=== PATIENT | female | born 2000 | race Caucasian/White ===

== ENCOUNTER 2019-01-29 09:20 | Inpatient (IN) ==
[2019-01-29 11:05] LABS: BASO# 0.02 X1000 (0.0-0.2); BASO% 0.2 % (0.0-0.8); EOS# 0.02 X1000 (0.0-0.7); EOS% 0.2 % (0.0-10.0); HEMOGLOBIN 13.2 g/dL (12.0-16.0); IMM GRAN# 0.03 X1000 (0.0-0.04); IMM GRAN% 0.2 % (0.0-0.5); LYMPH# 1.04 X1000 (1.2-3.4); LYMPH% 7.8 % (20.5-51.1); MCH 31.1 PG (27-31); MCHC 32.2 g/dL (33-37); MCV 96.5 FL (81-99); MONO# 1.15 X1000 (0.11-0.59); MONO% 8.7 % (1.7-9.3); MPV 9.8 FL (7.4-10.4); NEUT# 11.02 X1000 (1.4-6.5); NEUT% 82.9 % (42.2-75.2); PLT 316 X1000 (130-400); RBC 4.25 XMIL (4.2-5.4); RDW 14.8 % (11.5-14.5); WBC 13.28 X1000 (4.8-10.8)
[2019-01-29 11:23] LABS: AGAP 10; ALBUMIN 3.4 g/dL (3.5-5.0); ALKALINE PHOSPHATASE 66 U/L (32-104); BUN 8 mg/dL (8-22); CALCIUM 8.4 mg/dL (8.8-10.2); CHLORIDE 102 mmol/L (98-107); COSMO 271; CREATININE 0.9 mg/dL (0.5-0.9); ESTIMATED GFR > 60; GLUCOSE 80 mg/dL (70-104); GOT 12 U/L (10-30); GPT 17 U/L (10-36); POTASSIUM 3.4 mmol/L (3.5-5.1); SODIUM 137 mmol/L (136-145); TCO2 25 mmol/L (25-35); TOTAL PROTEIN 6.1 g/dL (6.3-8.3)
--- NOTE | 2019-01-29 12:27 | Diag Imaging Result Doc PS360 ---
EXAM: CHEST-2 VIEWS - 01/29/2019 HISTORY: cough/SOB TECHNIQUE: Chest two views COMPARISON: 05/31/2014 FINDINGS: Heart size appears upper normal and increased from prior. Inspiration is mildly shallow. There is apparent infiltrate in the right upper lobe. There are small to medium bilateral pleural effusions. There is no pneumothorax identified. IMPRESSION: Upper normal heart size which is increased from prior. Apparent infiltrate at right upper lobe. Metastatic lesion at the right lobe cannot be entirely excluded. Small to medium bilateral pleural effusions. Electronically signed by Francis Pham 01/29/2019 12:24 PM
--- NOTE | 2019-01-29 12:56 | Diag Imaging Result Doc PS360 ---
EXAM: CT NECK W/CONTRAST - 01/29/2019 HISTORY: neck pain TECHNIQUE: CT neck with intravenous contrast COMPARISON: 03/05/2014 CT cervical spine without contrast FINDINGS: The left internal jugular vein is diffusely thrombosed and enlarged. The thrombosis begins superiorly just below the jugular foramen at the base of the skull. The left innominate vein at the visualized superior most thorax does not opacify with contrast, left upper extremity sided contrast administration, indicating that the innominate vein also is thrombosed. There are multiple bilateral cervical and supraclavicular lymph nodes. These are small, but some are enlarged. The most conspicuously enlarged lymph nodes at the low cervical and supraclavicular regions on the right. IMPRESSION: Diffuse thrombosis with enlargement of left internal jugular vein in the neck. There is also evidence of thrombosis of the left innominate vein at the visualized superior most thorax. Bilateral cervical and supraclavicular adenopathy. This report was discussed with Dr. Hobbs on 01/29/2019 at 12:53 PM and was readback. This exam was performed using automated exposure control, adjustment of mA or kV according to patient size, and/or use of iterative reconstruction technique. Electronically signed by Francis Pham 01/29/2019 12:53 PM
--- NOTE | 2019-01-29 13:14 | PROVIDER DOCUMENTATION ---
HPI-General Adult - General Chief Complaint: Neck Pain Stated Complaint: NECK PAIN REVISIT/RECHECK Time Seen by Provider: 01/29/19 09:53 Source: patient, family Allergies/Adverse Reactions: Patient Allergies Allergy/AdvReac Type Severity Reaction Status Date / Time No Known Allergies Allergy Verified 01/27/19 18:53 Home Medications: Home Medication List Medication Instructions Recorded Confirmed Last Taken Type Nitrofurantoin Monohyd/M-Cryst 100 mg PO BID #14 cap 12/09/18 Unknown Rx [Macrobid 100 mg Capsule] Pnv No.95/Ferrous Fum/Folic AC 1 ea PO DAILY 12/09/18 12/09/18 Unknown History [ Caplet] Mupirocin Ointment [Bactroban 1 applicatn TOP BID #22 gm 01/27/19 Unknown Rx Ointment] - History of Present Illness -Gen Adult Nature of Presenting Problems: [id number] presents to the ER with c/o left neck pain, malaise, fever and dry cough. She states that sometimes she coughs up blood. She states she has been sick for a couple of weeks now and her neck has been hurting. 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 Exam reveals a painful mass to the left side of the of her neck. Diminished breath sounds. Location of Pain/Injury: reports: neck (left side) Pain Radiation: reports: no radiation Quality of Pain: reports: sharp Severity: reports: moderate Onset/Duration: reports: other (2 weeks ago) Review of Systems - Adult - REVIEW OF SYSTEMS - ADULT Constitutional: reports: no symptoms reported, fever Eyes: reports: no symptoms reported Ears, Nose, Mouth & Throat: reports: no symptoms reported Cardiovascular: reports: no symptoms reported, chest pain (with cough) Respiratory: reports: no symptoms reported, hemoptysis, shortness of breath Gastrointestinal: reports: no symptoms reported, difficulty swallowing. denies: abdominal pain, diarrhea, vomiting Genitourinary: reports: no symptoms reported Musculoskeletal: reports: no symptoms reported Integumentary: reports: no symptoms reported Neurological: reports: no symptoms reported. denies: dizziness/vertigo, headache/migraines Psychiatric: reports: no symptoms reported. denies: anxiety Endocrine: reports: no symptoms reported Hematologic/Lymphatic: reports: no symptoms reported. denies: low blood count Allergic/Immunologic: reports: no symptoms reported All Other Systems: Reviewed and Negative Past History - Adult - PAST MEDICAL HISTORY-ADULT Review of Records: reports: Old Records Reviewed, Nursing Assessment Review, Medications Reviewed, Social history reviewed & non-contributory. 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) - PRIOR SURGERIES/PROCEDURES Surgical/Procedure History: reports: , other (tumor removal) - PRIOR HOSPITALIZATIONS Prior Hospitalizations: reports: none - IMMUNIZATION STATUS Childhood Immunizations: See Nurse Assessment Flu Vaccine: See Nurse Assessment - FAMILY HISTORY Family History: reviewed, not pertinent - SOCIAL HISTORY Smoking: denies Substance Use: none/never Living Situation: family Physical Exam-General - PHYSICAL EXAM-ADULT Initial Vital Signs Reviewed: Yes - CONSTITUTIONAL General Appearance: alert, mild distress - EYES Eyes: PERRL/EOMI, pink conjunctivae - HEAD, EARS, NOSE, MOUTH & THROAT HENMT: normocephalic/atraumatic, moist mucous membranes, normal ENT inspection, TMs normal - NECK Neck: limited range of motion, lymphadenopathy, trachial deviation, tender lateral (left side) - RESPIRATORY Respiratory: chest non-tender, lungs clear, decreased breath sounds - CARDIOVASCULAR Cardiovascular: normal peripheral pulses, regular rate, rhythm - GASTROINTESTINAL (ABDOMEN) Abdominal Exam: normal bowel sounds, non tender, soft - LYMPHATIC Lymphatic: cervical node tenderness - MUSCULOSKELETAL Back Exam: normal inspection Extremity: normal range of motion, non-tender, normal gait - SKIN Integumentary: normal color, normal turgor, warm/dry - NEUROLOGIC Neurologic: grossly normal - PSYCHIATRIC Psych/Mental Status: depressed affect, tearful Progress - PLAN OF CARE/RESULTS Progress/Plan/Lab Results: Vital Signs - 8 hr 01/29/19 09:24 Temperature 97.9 F Pulse Rate 108 H Respiratory Rate 18 Blood Pressure 105/73 O2 Sat by Pulse Oximetry 99 Bedside Urine ED: Urine Bedside Start: 01/29/19 10:33 Freq: ORDERED Status: Active Protocol: Activity Type Activity Date Activity User E-Sign Co-Sign Detail Recorded Client Recorded Date Recorded By Document 01/29/19 10:33 [id number] 01/29/19 10:51 [id number] 01/29/19 10:33 Point of Care [Bedside Point of Care] -Lot # [id number] - Results Negative -Control Line Visible? Yes Laboratory Results - last 24 hr 01/29/19 01/29/19 10:25 10:25 WBC 13.28 H RBC 4.25 Hgb 13.2 Hct 41.0 MCV 96.5 MCH 31.1 H MCHC 32.2 L RDW Std Deviation 14.8 H Plt Count 316 MPV 9.8 Immature Gran % (Auto) 0.2 Neut % (Auto) 82.9 H Lymph % (Auto) 7.8 L [place] % (Auto) 8.7 Eos % (Auto) 0.2 Baso % (Auto) 0.2 Immature Gran # (Auto) 0.03 Neut # (Auto) 11.02 H Lymph # (Auto) 1.04 L [place] # (Auto) 1.15 H Eos # (Auto) 0.02 Baso # (Auto) 0.02 Sodium 137 Potassium 3.4 L Chloride 102 Carbon Dioxide 25 Anion Gap 10 BUN 8 Creatinine 0.9 Estimated GFR/1.73 m2 > 60 BUN/Creatinine Ratio 9 Glucose 80 Calculated Osmolality 271 Calcium 8.4 L Total Bilirubin 0.40 AST 12 ALT 17 Alkaline Phosphatase 66 Total Protein 6.1 L Albumin 3.4 L Globulin 3.0 Albumin/Globulin Ratio 1.0 Orders Category Date Time Status ED: Urine Bedside ORDERED Care 01/29/19 10:33 Active CHEST-2 VIEWS [RAD] Stat Exams 01/29/19 09:[address] NECK W/CONTRAST [CT] Stat Exams 01/29/19 11:[address] THORAX W/CONTRAST [CT] Urgent Exams 01/29/19 13:08 Ordered CBC WITH DIFF [HEME] Stat Lab 01/29/19 10:25 Completed COMPREHENSIVE METABOLIC PANEL [CHEM] Stat Lab 01/29/19 10:25 Completed Heparin 25,000 Units/D5w Med 01/29/19 13:15 Ordered 25,000 unit in 250 ml IV 12 unit/kg/hr patient and family verbalize an understanding of POC and treatment rendered here today. Result Diagrams: 01/29/19 10:25 01/29/19 10:25 - CONSULTS/PCP/HOSPITALIST Notification #1 *Consult/PCP/Hospitalist*: Dr Antonio Time Discussed: 13:00 Reason/Comments: lymphadenopathy, thrombosis of internal jugular Consult Disposition: Admit Departure - Departure Date of Disposition Decision: 01/29/19 Time of Disposition Decision: 13:22 DIAGNOSIS: Lymphadenopathy of head and neck Thrombosis of internal jugular vein Qualifiers: Laterality: left Qualified Code(s): I82.C12 - Acute embolism and thrombosis of left internal jugular vein Disposition: HOME 01 Certified Medical Emergency: Emergent Condition: Critical Additional Freetext Instructions: ED Follow Up Instructions: You have been treated by a care provider in the Emergency Department. These instructions are being provided to you so you can have an understanding of how to care for yourself upon discharge. Upon discharge from the Emergency Department, you are responsible for making arrangements for follow-up care by a physician of your choice. Take all prescribed medications as directed. Return to the Emergency Department immediately for any new or worsening symptoms. You may call the Physician Referral phone number at [phone] to obtain a list of Physicians who are taking new patients. Referrals and Follow-Ups: Mir Camacho MD [Primary Care Provider] - - Critical Care Note This patient required my direct & personal management of CC.: No Attestation - Physician/ ELIZABETH Attestation Patient care was provided by Advanced Practice Provider:: Yes Advanced Practice Provider:: Tevin Michel Advanced Practice Provider documentation review:: The Mid-level provider documentation, treatment plan and medical decision making was reviewed by the physician who agrees with all treatment and medical decision making by the MLP. The physician spent face to face time with patient:: No Advanced Practice Provider documentation review:: Supervising physician onsite and consulted in the evaluation and care of this patient. The physician did not have a face to face encounter with the patient.
[2019-01-29] MEDS ORDERED: HEPARIN 25,000 UNITS/D5W 25,000 UNIT/250 ML IV.SOLN IV SCH ×2 (13:15→15:45)
--- NOTE | 2019-01-29 14:21 | Diag Imaging Result Doc PS360 ---
EXAM: CT THORAX W/CONTRAST - 01/29/2019 HISTORY: lung mass TECHNIQUE: CT thorax without contrast COMPARISON: None. FINDINGS: There is thrombosis of the left innominate vein, with opacification of venous collaterals. The superior vena cava is possibly thrombosed, but there is not enough contrast extending towards the superior vena cava to determine with certainty if it is thrombosed. There are medium right and small and smaller left pleural effusions. There is a 3.9 cm rounded opacity at the right upper lobe. The appearance is more suggestive of infiltrate or mass lesion, but mass lesion is not excluded. The remainder of the lungs appear grossly clear. There is no pneumothorax identified. There are a few mildly prominent mediastinal lymph nodes. IMPRESSION: Thrombosis of left innominate vein. Possible thrombosis of superior vena cava. Medium right and small left pleural effusions. 3.9 cm right upper lobe opacity which is most suggestive of infiltrate, but mass lesion is not excluded. This exam was performed using automated exposure control, adjustment of mA or kV according to patient size, and/or use of iterative reconstruction technique. Electronically signed by Francis Pham 01/29/2019 2:18 PM
[2019-01-29] MEDS ORDERED: TYLENOL PO PRN (15:02)
[2019-01-29] MEDS ORDERED: NS 1,000 ML IV SCH (15:15)
[2019-01-29] MEDS ORDERED: VANCOMYCIN IV PER PHARMACY MISC SCH (15:15)
[2019-01-29] MEDS: ZOSYN 3.375 GM in NS 50 ML IV SCH ×2 (15:34→21:17)
--- NOTE | 2019-01-29 15:58 | HISTORY AND PHYSICAL ---
PRIMARY CARE PROVIDER: Dr. Mir Camacho. CHIEF COMPLAINT: Left neck pain. HISTORY OF PRESENT ILLNESS: Ms. 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 She received 13 chemotherapy treatments in 2015 and also had 2 separate surgical procedures to remove a large left neck tumor at that age. Essentially no other medical history. During that time, they also removed left groin lymph nodes along with left neck and right neck lymph nodes. Since then, she has not followed up with an oncologist. Now she comes in with complaints of left neck swelling and pain. Approximately 1 month ago, on 12/23/2018, she had a section with a baby girl. The incision is mostly well-approximated without signs or symptoms of infection except for on the right side, there is a pin size, Q-Tip size hole with a little bit of drainage coming from it, a very small dehisced area. Apparently, she had her surgery at [facility]. Workup reveals that she has thrombosis in her neck which includes left internal jugular vein and left innominate vein with some cervical and supraclavicular adenopathy. The lymph nodes are on both bilateral cervical and supraclavicular areas. Some are small and some are large. The most large lymph nodes just happened to be in the low cervical and supraclavicular regions on the right where also there was an area of infiltrate about 3.9 cm in the right upper lobe. It is felt like it was more infiltrate but a mass lesion could also not be excluded. She is with leukocytosis. It could be from a right upper lobe pneumonia or it could be from the infected incision from the section. She will be started on IV antibiotics. We will transfer her to [facility] for further care and evaluation of oncology/hematology who will help with managing the clot in the neck along with the area that is in the right upper lobe. She will be on a heparin drip. She has had neck pain for about 2 days with swelling that started this morning. Last night, she had a dry cough that had been going on for a week. She had a dry cough and last night had blood-tinged productive cough but only one time. She has noticed that she has become more short of breath with walking, along with shortness of breath at night, and nocturnal chills with heat flashes. She has also had some abdominal lumps on the right side of her abdomen. 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 In 2015, she received 13 treatments of chemotherapy in [facility] and does not have anyone that she follows now. SURGICAL HISTORY: 1. She has had two sections with the most recent one being on 12/23/2018 where she had a little girl. 2. Left neck tumor removed that required two separate surgeries. 3. Also had lymph nodes removed in the right groin, left neck, and right neck. SOCIAL HISTORY: She smokes a half pack per day and has so since the age of 13, so at least 3 years. Denies alcohol or illicit drug use. She lives with her grandmother. She is unemployed. She has two little girls. The most recent one was on 12/23/2018. Both by section. FAMILY HISTORY: Mother: No medical conditions that she knows of. Father's side of the family, she had a cousin who had breast cancer, an aunt who had an unknown type of cancer, and there is hypertension on his side. ALLERGIES: She states no real medication allergies except for pain medications can make her a little itchy. HOME MEDICATIONS: Not verified yet. REVIEW OF SYSTEMS: Fourteen point review of systems is completed and all are negative except for those mentioned above in the HPI. PHYSICAL EXAMINATION: VITAL SIGNS: Temperature 97.8 degrees, heart rate 109, respiratory rate 20, blood pressure 121/93, O2 saturation 98% on room air, 5 feet 4 inches tall, 190 pounds, BMI is 32.6. GENERAL: Ms. Arminda Felix is a 18-year-old female who is in no acute distress. She is able answer questions appropriately. HEENT: Atraumatic and normocephalic. Pupils equal, round, reactive to light. Extraocular movements intact. Mucous membranes are moist. NECK: Trachea midline. Swollen in the left side of her neck down to the front chest and down onto the left shoulder. No signs or symptoms of infection. It is tender to palpation. CARDIOVASCULAR: S1, S2. Tachycardic rate and rhythm. No rubs, gallops, murmurs. No lower extremity edema. There are +2 dorsalis and radial pulses. Negative JVD or carotid bruits. PULMONARY: Clear to auscultate bilateral breath sounds. No accessory muscle use or work of breathing noted. GI: Soft. Some small areas, linear type areas of lumps that she had noticed are slightly palpable. They are nontender. It is just in the mid abdomen not too far from the umbilicus. Otherwise soft, nontender, nondistended. Positive bowel sounds x4. EXTREMITIES: Moves all extremities equally with full range of motion NEUROLOGIC: A and O x3. Follows commands. Sensory is intact. SKIN: Warm, dry, intact except for lower abdominal and upper pelvic incision, a incision mostly dry and healing except for there is a small location in the right that has a small, almost pinpoint size of dehiscence and drainage. LABORATORY DATA: White blood cells 13,000, hemoglobin 13, hematocrit 41, platelet count 316,000. PTT 28.2. Sodium 137, potassium 3.4, BUN 8, creatinine 0.9, glucose 80, calcium 8.4. Bilirubin 0.40, AST 12, ALT 17, albumin 3.4. IMAGIN. Chest x-ray, upper normal heart size which is increased from prior. Apparent infiltrate at the right upper lobe. Metastatic lesion at the right lobe could not entirely be excluded. Small to medium bilateral pleural effusions. 2. CT, diffuse thrombosis with enlargement of left internal jugular vein at the neck. There is also evidence of thrombosis of the left innominate vein at the visualized superiormost thorax. There is bilateral cervical and supraclavicular adenopathy. The largest lymph nodes are actually on the right side. 3. Chest CT, thrombosis of left innominate vein. Possible thrombosis of the SVC, the superior vena cava. A medium right and small left pleural effusion. A 3.9 cm right upper lobe opacity which is most suggestive of an infiltrate but mass lesion is not excluded. ASSESSMENT AND PLAN: 1. Left neck pain, now with venous thrombosis of the left innominate, jugular vein. Possible thrombosis of the superior vena cava and thrombosis of the left internal jugular vein as well. She is going to be on a heparin drip. We will consult hematology to help evaluate. We will do hypercoagulable labs. 2. Right upper lobe infiltrate, measures 3.9 cm. Cancer cannot be excluded so she is going to have Dr. Eagle with oncology to evaluate. There is a question as to whether it could be some pneumonia so she will be on antibiotic therapy for that. If the size does not start to decrease with antibiotic therapy, she may very well likely need to have a biopsy of this site. 3. History of Hernandez sarcoma on the left side of her neck diagnosed in 2015 and had 13 chemotherapy treatments at that time at [facility]. No followup since then. 4. x1 month. There is some question as to whether this could be hormonal causing the clots. Of course, we will begin the hypercoagulable labs. Her incision on her abdomen from the section incision appears to be healing well except for the right side. There was a small pinhole or Q-tip sized dehiscence with a little bit of drainage which we are going to culture. 5. Leukocytosis, inflammatory or it could be right upper lobe pneumonia or right abdominal section incision dehiscence with an infection. She is going to be on vancomycin and Zosyn. We will follow up on her cultures and a lactate, and give her some intravenous fluids. 6. Bilateral pleural effusions. We are going to check her heart function with an echocardiogram. 7. Tobacco abuse. Cessation discussed. We will hold off on doing a nicotine patch as that can increase risk for more clots. 8. Deep venous thrombosis prophylaxis. She is on a heparin drip. Dictated by MYRIAM Negro for Corona Antonio MD cc: MYRIAM Negro MD
[2019-01-29] MEDS: LASIX IV SCH (16:24)
--- NOTE | 2019-01-29 16:32 | HISTORY AND PHYSICAL ---
ADDENDUM: This is a 18-year-old female with a history of Hernandez sarcoma as a teenager, when she was 13, status post resection and chemo. She has been cancer-free now for several years. She just had a baby with about a month ago. Workup in the ER, she came in for neck pain and swelling, found that she had an extensive internal jugular DVT thrombosis extending up to the base of her skull, associated pain noticed. PHYSICAL EXAMINATION: Really unremarkable. PROBLEM LIST: 1. Large internal jugular thrombosis. No clear infection. She has been placed on heparin, which I think Lovenox would be sufficient but we have had her on heparin. Her etiology for this is really unclear. There is obviously always a concern over relation to malignancy, but there is no clear recurrence. She does have a small spot in her lungs which is round and circumscribed. She has bilateral pleural effusions. I think all of those things may put her at risk. But she may have a hypercoagulable state. We screened her for that. We will continue anticoagulation and follow. I am not sure if there is any clear clinical role for the novel oral anticoagulants in this setting. She may have to require Coumadin. We are going to get a Hematology evaluation, for which we will have to send her across town to the [facility] to decide about long-term therapy and re-evaluation for her Hernandez sarcoma. 2. Possible pneumonia. She is on antibiotics as such. She does have some bilateral pleural effusions so I think we may need to give her some Lasix and repeat her chest x-ray. She does have risk factors for stroke acutely which includes smoking. She is not on any hormonal therapy but multiple issues from that standpoint. Again, we are going to transfer her across town for evaluation by the physicians there. cc: Corona Antonio MD
[2019-01-29] MEDS: NORCO-7.5 PO PRN ×2 (16:56→22:53)
[2019-01-29] MEDS ORDERED: VANCOMYCIN 2 GM in NS 500 ML IV ONE (17:00)
[2019-01-29 17:40] LABS: URINE SOURCE CLEAN CATCH
[2019-01-29 17:46] LABS: BILIRUBIN URINE NEGATIVE (NEGATIVE); BLOOD URINE NEGATIVE (NEGATIVE); COLOR YELLOW; GLUCOSE URINE NEGATIVE (NEGATIVE); KETONE URINE NEGATIVE (NEGATIVE); LEUKOCYTES URINE NEGATIVE (NEGATIVE); NITRITE URINE NEGATIVE (NEGATIVE); PH URINE 6.5; PROTEIN URINE 50 mg/dL (NEGATIVE); TURBIDITY URINE CLEAR (CLEAR); UROBILINOGEN URINE NORMAL (NORMAL)
[2019-01-29 17:47] LABS: UR EPITHELIAL CELLS <10 /HPF (<10); URINE BACTERIA NEGATIVE /HPF; URINE RBC <10 /HPF (<10); URINE WBC <10 /HPF (<10)
--- NOTE | 2019-01-29 18:07 | PROGRESS NOTE ---
DATE: 01/29/2019 She was transferred from [place]. She was seen by Dr. Mir Camacho. Complained of neck pain. This is a 18-year-old female with a medical history of Hernandez sarcoma, diagnosed at age 13. Received 13 chemotherapy treatments in 2015. Had 2 separate surgical procedures to remove large left neck tumor at that age. Essentially no other medical problems. They removed left groin lymph nodes along with left neck and right neck lymph nodes. Since then, she has been followed up with an oncologist. I think she was treated at [facility] in [place]. She came in complaining with neck swelling and pain approximately 1 month ago. On 12/23/2018 she had a section with a new baby girl. Incision is mostly well approximated with no signs or symptoms of infection. There is a pin-sized, Q-tip-sized hole with a little bit of drainage coming from it, very small dehiscent area. Apparently she had surgery in [facility]. Workup reveals that she had thrombosis of her neck which includes left internal jugular vein and left innominate vein with some cervical and supraclavicular adenopathy. Lymph nodes are both bilateral cervical and supraclavicular areas, some more small and some more large. The largest lymph nodes just happened to be in the low cervical and supraclavicular regions in the right where there is also a bit of an infiltrate about 3.9 cm in the right upper lobe. It is felt it looks more consistent with an infiltrate, but a mass lesion could not be excluded. She did have some leukocytosis. This could be from pneumonia, so treating her for pneumonia, and also could be from infection from the section. She is on IV antibiotics and she is on IV heparin. She has some swelling in that left jugular vein and I think that is where her discomfort is. Rest of the exam is unremarkable. cc: Memo Gillis MD
[2019-01-29] MEDS ORDERED: G.I. COCKTAIL PO ONE (21:47)
[2019-01-29] MEDS: BENADRYL PO PRN (21:59)
[2019-01-29] MEDS: ZOFRAN IV PRN (22:00)
[2019-01-30] MEDS ORDERED: HEPARIN IV PRN (00:29)
[2019-01-30] MEDS ORDERED: HEPARIN IV ONE ×2 (00:47→10:02)
[2019-01-30] MEDS: ZOSYN 3.375 GM in NS 50 ML IV SCH ×4 (02:58→21:19)
[2019-01-30] MEDS: NORCO-7.5 PO PRN ×4 (05:14→23:41)
[2019-01-30] MEDS: PRILOSEC PO SCH (06:37)
[2019-01-30 07:00] LABS: BASO# 0.02 X1000 (0.0-0.2); BASO% 0.2 % (0.0-0.8); EOS# 0.09 X1000 (0.0-0.7); EOS% 0.9 % (0.0-10.0); HEMATOCRIT 37.1 % (37.0-47.0); HEMOGLOBIN 12.3 g/dL (12.0-16.0); LYMPH# 1.37 X1000 (1.2-3.4); LYMPH% 13.1 % (20.5-51.1); MCH 31.5 PG (27-31); MCHC 33.2 g/dL (33-37); MCV 95.1 FL (81-99); MONO# 0.98 X1000 (0.11-0.59); MONO% 9.3 % (1.7-9.3); NEUT# 8.03 X1000 (1.4-6.5); NEUT% 76.5 % (42.2-75.2); PLT 296 X1000 (130-400); WBC 10.49 X1000 (4.8-10.8)
[2019-01-30 07:11] LABS: INR 1.09
[2019-01-30 07:13] LABS: PTT 35.4 Seconds (22.3-41.8)
[2019-01-30] MEDS: LASIX IV SCH (08:20)
[2019-01-30 08:25] LABS: AGAP 13; ALB/GLOB RATIO 1.2; ALKALINE PHOSPHATASE 58 U/L (32-104); BUN 6 mg/dL (8-22); CALCIUM 8.3 mg/dL (8.8-10.2); CHLORIDE 101 mmol/L (98-107); COSMO 273; CREATININE 0.9 mg/dL (0.5-0.9); ESTIMATED GFR > 60; GLUCOSE 87 mg/dL (70-104); GOT 9 U/L (10-30); GPT 14 U/L (10-36); MAGNESIUM 1.6 mg/dL (1.5-2.7); POTASSIUM 3.4 mmol/L (3.5-5.1); SODIUM 138 mmol/L (136-145); TCO2 24 mmol/L (25-35); TOTAL BILIRUBIN 0.39 mg/dL (0.20-1.00); TOTAL PROTEIN 5.6 g/dL (6.3-8.3)
[2019-01-30] MEDS ORDERED: HEPARIN 25,000 UNITS/D5W 25,000 UNIT/250 ML IV.SOLN IV SCH (10:04)
[2019-01-30] MEDS: HEPARIN 25,000 UNITS/D5W 25,000 UNIT/250 ML IV.SOLN IV SCH (10:29)
[2019-01-30] MEDS: VANCOMYCIN 1.7 GM in NS 250 ML IV SCH (10:50)
--- NOTE | 2019-01-30 16:16 | PROGRESS NOTE ---
DATE: 01/30/2019 SUBJECTIVE: She is sleeping, resting comfortably. She says she is little more comfortable on the left side. OBJECTIVE: Vital Signs: Remains afebrile, temperature 98.1 degrees, pulse 78, respirations 20, blood pressure 106/60. HEENT: Pupils are equal and round. Neck: Exam of left side of her neck, still jugular distention and some tenderness. Lungs: Clear in all lung calero. Cardiovascular: Regular rhythm and rate without murmur or S3. Abdomen: Soft. Skin: Warm and dry. LABORATORY STUDIES: Urine output was 3200 mL. ASSESSMENT AND PLAN: 1. Large internal jugular thrombus. No clear infection seen. On IV heparin. Seems to be a little softer. There is obviously some concern in relation to possible malignancy. Chest x- ray did have a small spot that looks like pneumonia. She has bilateral pleural effusions which are mild. She may have a hypercoagulable state and those studies have been sent. Hematology has been asked to see. 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 2. Treating her for probable pneumonia. She is on vancomycin 1.7 g IV every 18 hours, Zosyn 3.375 g q.6 h. Continue her heparin drip. Getting Lasix 40 mg IV daily, Prilosec 40 mg a day. REVIEW OF LABS: Her lab from today revealed white count down from 13,000 to 10,490, hematocrit 37, platelet count 296,000. Sodium 138, potassium 3.4, chloride 101, BUN 6, creatinine 0.9. TSH was 5.26. I will check a T4, TSH, as well. Coagulation studies: PT was 15, PTT was 35, but on the heparin protocol would like to get her PTT up to 1-1/2 lupus anticoagulant. The presence of small amounts of lupus anticoagulant cannot be excluded and she is on heparin. Continue her heparin. We will ask Oncology to see and Dr. Enmanuel Eagle was consulted. cc: Memo Gillis MD
--- NOTE | 2019-01-30 16:43 | GENERAL SURGERY CONSULTATION ---
DATE: 01/30/2019 REQUESTING PHYSICIAN: Hospitalist. REASON FOR CONSULTATION: Consult concerning lymphadenopathy. 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 She apparently had chemotherapy treatments at that point. She came into the emergency department with left neck pain and was found to have lymphadenopathy and a thrombosed left internal jugular vein and left innominate vein. She apparently had some point had some lymph nodes removed from her groin and her neck when she was younger per history. Again, the only other issues recently she has had a child last month and had a . She apparently has been followed in [place] for her Hernandez sarcoma. I was asked to weigh an opinion because when she came in, a repeat CT scan showed lymphadenopathy. PAST MEDICAL HISTORY: Hernandez sarcoma,status post resection and chemotherapy. PAST SURGICAL HISTORY: Includes , left neck tumor removed, and Hernandez sarcoma surgery. SOCIAL HISTORY: Current smoker. FAMILY HISTORY: Positive for breast cancer. ALLERGIES: None. HOME MEDICATIONS: Reviewed. Of note, she is on heparin drip. REVIEW OF SYSTEMS: A full 10 point review of systems was obtained and negative, except as specified in the HPI. PHYSICAL EXAMINATION: Vital Signs: Patient is currently afebrile. Her vital signs are stable. General: No acute distress. HEENT: Normocephalic, atraumatic. Pupils equal, round, and reactive to light. Mucous membranes moist. Oropharynx benign. Neck: Supple. Some enlargement noted bilaterally. Tenderness, especially on the left side. Cardiovascular: Regular rate and rhythm. Lungs: Grossly clear. Abdomen: Soft, nontender, nondistended. Extremities: Moves all extremities. Neurologic: Grossly intact. Skin: No signs of jaundice. Vascular: All extremities perfused. DIAGNOSTIC STUDIES: Laboratory reviewed. CT scan independently reviewed and radiology report reviewed. The neck CT does show bilateral cervical and supraclavicular adenopathy with thrombus of the left internal jugular vein and left innominate vein. ASSESSMENT AND PLAN: A 18-year-old female with lymphadenopathy. Lymphadenopathy. At this time, agree with further imaging to kind of evaluate how diffuse this process is. She is on a heparin drip, so we will need to stop that before any kind of surgical excision. May even want to consider PET scan, but we will defer to the oncologist. At this point, we will await further imaging before we make the final determination. cc: Maurice Crespo MD
--- NOTE | 2019-01-30 18:25 | Diag Imaging Result Doc PS360 ---
EXAM: CT ABD/PELVIS W/PO AND IV CON 01/30/2019 HISTORY: r/o metastasis TECHNIQUE: This exam was performed using automated exposure control, adjustment of mA or kV according to patient size, and/or use of iterative reconstruction technique. COMMENT: There are no previous abdominal CT examinations. Where possible the study is compared with the previous thoracic study of 01/29/2019. There are bilateral pleural effusions. There is skin thickening over the lower chest, particularly over the left breast, and these findings were also present on the previous thoracic study. There is dense contrast in venous collaterals around the aorta. This extends along the lumbar spine and there is dense contrast refluxing into the inferior vena cava and iliac veins indicating a relatively sluggish cardiac output. The abdominal aorta is not distended. The mesenteric and renal arteries are patent. There are opacities present in both lower lobes which may be due to compressive atelectasis. This is similar in appearance to the previous thoracic study. There is flash filling of portions of the left hepatic lobe on the arterial phase which is more dramatic than on the previous thoracic study. This is most likely due to collateral venous enhancement via collateral veins arising from the internal mammaries. The enhancement pattern of the liver is generally very inhomogeneous on the venous phase no discrete masses are identifiable however. The spleen and adrenal glands are not enlarged. The pancreas is within normal limits. The kidneys are without evidence of hydronephrosis or mass. The kidneys are somewhat lobulated particularly the left kidney. There is retroperitoneal adenopathy particularly below the level of the renal vessels. There are several periaortic nodes on the left which exceed a centimeter in diameter. There is subcutaneous edema particularly in the flanks. There are varicose subcutaneous veins seen in the anterior abdominal wall. Pelvis: The left ovary is enlarged measuring in excess of 5.2 cm in AP dimension. There may be some cysts. The right ovary is not particularly enlarged although there may also be a cyst on the right side measuring 1.5 cm. There is no evidence of significant free fluid or adenopathy in the pelvis. There is no evidence of significant bony abnormality. IMPRESSION: 1. Bilateral pleural effusions. 2. Extensive venous collaterals. This is apparently due to obstruction of the left subclavian vein and/or the superior vena cava as seen on the previous thoracic study. 3. Markedly inhomogeneous liver enhancement. This may be result of periportal edema and hepatitis, cirrhosis, or altered vascularity, although the possibility of hepatic metastatic disease cannot be entirely excluded. 4. Retroperitoneal adenopathy. 5. Enlargement of the left ovary. Electronically signed by Saroj Johnson 01/30/2019 6:23 PM
--- NOTE | 2019-01-31 00:09 | ECHO REPORT ---
ORDER DATE: 01/29/2019 MEASUREMENTS: Septal thickness 0.8, left ventricular internal diameter diastole 5.2, posterior wall thickness 0.8, left ventricular internal diameter in systole 4.4, aortic root 2.5. SUMMARY: 1. Technically difficult study due to limited acoustic window quality. Intravenous echo contrast agent Optison was utilized to enhance endocardial definition. 2. Aortic valve without evidence of structural abnormality and appears to open adequately on 2- dimensional images. Peak gradient across aortic valve is less than 5 mmHg. Mitral and tricuspid valves are without evidence of structural abnormality while pulmonic valve is not well demonstrated. There is very mild mitral regurgitation and trace tricuspid regurgitation. Estimated systolic PA pressure by Doppler is 35 to 40 mmHg suggesting mild pulmonary hypertension. Aortic root is normal in size. 3. Normal left ventricular dimensions demonstrated. Estimated left ventricular ejection fraction approximately 25% in the setting of global hypokinesis. Left atrium is mildly enlarged. Right atrium, right ventricle grossly normal in size. 4. Very small posterior pericardial effusion demonstrated. 5. Inferior vena cava not well demonstrated. cc: MD Julia Lucas CRNP
[2019-01-31] MEDS: HEPARIN 25,000 UNITS/D5W 25,000 UNIT/250 ML IV.SOLN IV SCH (03:16)
[2019-01-31] MEDS: ZOSYN 3.375 GM in NS 50 ML IV SCH ×4 (04:45→20:46)
[2019-01-31] MEDS: VANCOMYCIN 1.7 GM in NS 250 ML IV SCH ×2 (05:42→22:55)
[2019-01-31] MEDS: NORCO-7.5 PO PRN ×4 (05:46→22:55)
[2019-01-31] MEDS: PRILOSEC PO SCH (06:06)
[2019-01-31] MEDS ORDERED: HEPARIN 25,000 UNITS/D5W 25,000 UNIT/250 ML IV.SOLN IV SCH ×3 (06:57→18:47)
[2019-01-31] MEDS ORDERED: HEPARIN IV ONE (07:05)
--- NOTE | 2019-01-31 07:30 | GENERAL SURGERY PROGRESS NOTE ---
DATE: 01/31/2019 SUBJECTIVE: Patient is doing about the same. A CT scan yesterday of her abdomen did show adenopathy in the retroperitoneum. OBJECTIVE: Vital Signs: The patient is currently afebrile. Vital signs are stable. General Examination: No acute distress. HEENT: Normocephalic, atraumatic. Pupils equal, round, reactive to light. Mucous membranes moist. Oropharynx benign. Neck: Some enlargement noted bilaterally. Cardiovascular: Regular rate and rhythm. Lungs: Grossly clear. Abdomen: Soft, nontender, nondistended. Extremities: Moves all extremities. Neurologic: Grossly intact. Skin: No signs of jaundice. Vascular: All extremities perfused. ASSESSMENT AND PLAN: A 18-year-old female with a history of Hernandez sarcoma, now with diffuse adenopathy. Diffuse adenopathy. At this time, the patient has several lymph nodes that are enlarged. Given her history, there is some concern what this may represent. We could potentially do a lymph node excision but it would be likely on the left side where she has a thrombus in her internal jugular, which may be high risk. Other option would be maybe some kind of imaging guided FNA. The patient may even benefit from a PET scan, given the diffuse nature of her adenopathy, to see if they are metabolically active but would defer to Oncology. At this point, it would likely be several days before I could probably get to doing the biopsy and we need to stop her heparin drip for a period of time. The other option would potentially sending her back down to her oncologist in [place] but, again, we will defer to the oncologists for their recommendation. cc: Maurice Crespo MD
[2019-01-31] MEDS: LASIX IV SCH (09:32)
--- NOTE | 2019-01-31 12:56 | PROGRESS NOTE ---
DATE: 01/31/2019 SUBJECTIVE: This patient is still complaining of neck pain on the left side. She is not complaining of shortness of breath, chest pain, nausea, vomiting, or constipation. No diarrhea. I reviewed the echocardiogram done on 01/29/2019 and it showed an ejection fraction of 25% in the setting of global hypokinesis. I will request cardiology evaluation. We are planning to get some tissue from those nodules/lymph nodes at some point, either during this hospitalization or outpatient. Hematology and surgery department on board. OBJECTIVE: Vital Signs: Temperature 97.5 degrees, pulse 100, respiratory rate 20, blood pressure 95/49, oxygen saturation 100% on room air. HEENT: Head normocephalic. No trauma. Neck: She has pain/tenderness with some jugular distention on the left side. Chest: Decreased breath sounds at the bases with some crackles. Abdomen: Soft, nontender, nondistended. No hepatosplenomegaly. Extremities: No edema, no clubbing, no cyanosis. Neurological Examination: The patient is alert. She is oriented x3. No focal deficits. Laboratory: I will repeat the lab work tomorrow. ASSESSMENT AND PLAN: 1. Left neck pain with venous thrombosis in the left innominate and jugular vein. Possible also thrombosis at the level of the superior vena cava and thrombosis of the left internal jugular vein. Continue with heparin drip. Hematology/oncology already evaluated this patient. We will follow their recommendations. 2. Multiple diffuse adenopathy in a patient with history of Hernandez sarcoma. Surgery department on board. The plan is to try to get some tissue from those lymph nodes. We will wait for the biopsy. 3. Bilateral pleural effusion in a patient with an echocardiogram that showed an ejection fraction of 25%. As per the patient, she does not have any history of heart problems but the echocardiogram showed hypokinesis with a low ejection fraction. I will get cardiology department to evaluate this patient. 4. 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 She [facility] [place]. She has not been followed up with them. 5. x1 month. Aware. We will continue to monitor her wound. 6. Leukocytosis. Aware. Upon admission, the WBC was 13 and yesterday was 10. I will repeat it tomorrow. 7. Deep vein thrombosis prophylaxis. She is on a heparin drip. 8. Right upper lobe nodule versus infiltrate. Continue with the same management. cc: Servando Everett MD
--- NOTE | 2019-01-31 15:50 | Diag Imaging Result Doc PS360 ---
EXAM: BONE SCAN, TOTAL BODY HISTORY: r/o metastasis TECHNIQUE: Nuclear medicine bone scan COMPARISON: None. FINDINGS: 28.0 mCi MDP administered. Whole-body images obtained. There is normal uptake in the skull, chest, spine, pelvis. Symmetric activity in the extremities. IMPRESSION: No bony metastases. Electronically signed by Baldomero Sheppard 01/31/2019 3:48 PM
[2019-01-31] MEDS ORDERED: G.I. COCKTAIL PO ONE (16:05)
--- NOTE | 2019-01-31 18:56 | CONSULTATION ---
DATE OF CONSULTATION: 01/31/2019 IMPRESSION: 1. Acute congestive heart failure. 2. Severe cardiomyopathy, probably cardiomyopathy with left ejection fraction of 25%. 3. Venous thrombosis in the left innominate and jugular vein. Patient recently presented with left neck discomfort. 4. History of Hernandez sarcoma left side of the neck and back diagnosed 2014. Has been treated with chemotherapy. RECOMMENDATIONS: 1. Initiate angiotensin receptor blocking agent. 2. Initiate low dose Coreg. 3. Diurese gently. 4. Agree with anticoagulation and consideration of possible hypercoagulability. 5. Patient advised that given apparent cardiomyopathy, that she should avoid further pregnancies. HISTORY OF PRESENT ILLNESS: This 18-year-old female with past history of Hernandez sarcoma left neck diagnosed in 2014 and treated with chemotherapy who is now about a month after delivering her second child via was admitted with left neck discomfort. She has also had orthopnea and exertional shortness of breath for about two weeks. She was found to have thrombosis of left innominate and jugular vein. She also was found to have pleural effusions and echocardiography showing left ventricular ejection fraction 25%. She relates no problems during her . She had a with her first and had at term with her recent because of being previous C section with her first pregancy. She relates that she did not have any problems with hypertension or congestive heart failure during her . She relates she has started having exertional shortness of breath and ultimately orthopnea approximately two weeks ago that has gotten worse. She has had some mild chest tightness that is low-grade continuous and worse when she lies down. PAST MEDICAL HISTORY: 1. Hernandez sarcoma diagnosed at age 13 in 2014 involving Hernandez sarcoma and left neck. Patient treated at [facility] with chemotherapy. 2. Status post previous which required due to her failure to progress with labor. 3. Status post second which she carried term without difficulty, also delivery via section. She relates that she got a because she had a C- section with her first . 4. Negative for hypertension or diabetes. ALLERGIES: She has no known drug allergies. MEDICATIONS: As listed. SOCIAL HISTORY: She previously smoked half pack of cigarettes per day, but discontinued this two weeks ago as her dyspnea symptoms started. She does not use alcohol. FAMILY HISTORY: Negative for premature coronary disease. REVIEW OF SYSTEMS: Pulmonary: Noteworthy for dyspnea and orthopnea. Gastrointestinal: Negative. Constitutional: Negative/noncontributory beyond history of present illness. Remainder of review of systems negative/noncontributory beyond history of present illness with 14 total systems reviewed. PHYSICAL EXAMINATION: General: This is a pleasant adult female in no distress. Vital Signs: Blood pressure 110/64, heart rate 92. Oxygen saturation 100% on room air. HEENT: Extraocular movements appear intact. Mucous membranes are moist. Neck: Supple. No jugular venous distention. No carotid bruits. Chest: Auscultation of the chest reveals some diminished breath sounds at the bases bilaterally. Cardiac: Reveals a regular rate and rhythm without appreciable murmur or gallop. Abdomen: Soft, nontender. Extremities: Without edema. DIAGNOSTICS: Chest x-ray on admission demonstrates cardiomegaly and small bilateral pleural effusions. Echocardiography indicates left ventricular ejection fraction of 25% in the setting of global hypokinesis. LABORATORY DATA: Includes white blood cell count 10.49, hematocrit 37.1, hemoglobin 12.3, platelet count 296,000. Sodium 138, potassium 3.4 chloride 101, carbon dioxide 24, BUN 6, creatinine 0.9, glucose 87. Albumin 3.0. TSH 5.26. Phospholipid antibody levels are normal. ECG is not available as it is not scanned into the electronic medical record nor in the patient's chart. cc: Tam Morin MD [facility]
[2019-01-31] MEDS: DIOVAN PO SCH (18:57)
[2019-02-01] MEDS: HEPARIN 25,000 UNITS/D5W 25,000 UNIT/250 ML IV.SOLN IV SCH ×2 (01:58→14:02)
[2019-02-01] MEDS: ZOSYN 3.375 GM in NS 50 ML IV SCH ×2 (03:06→08:33)
[2019-02-01] MEDS: PRILOSEC PO SCH (06:13)
[2019-02-01] MEDS: NORCO-7.5 PO PRN (06:14)
--- NOTE | 2019-02-01 06:38 | GENERAL SURGERY PROGRESS NOTE ---
DATE: 02/01/2019 SUBJECTIVE: Patient seems to be doing okay. She had a discussion with the microsystems engineer. Her impression from the microsystems engineer is that she could not go fully asleep under anesthesia for any kind of procedure. OBJECTIVE: Vital Signs: Patient is currently afebrile. Her vital signs are stable. General: No acute distress. HEENT: Normocephalic, atraumatic. Pupils equal, round, reactive to light. Mucous membranes moist. Oropharynx benign. Neck: Tenderness on the right left side. Cardiovascular: Regular rate and rhythm. Lungs: Grossly clear. Abdomen: Soft, nontender, nondistended. Extremities: Moves all extremities. Neurologic: Grossly intact. Skin: No signs of jaundice. Vascular: All extremities perfused. LABORATORY DATA: None this morning as of yet. ASSESSMENT AND PLAN: A 18-year-old female with lymphadenopathy. Lymphadenopathy. At this time, had a lengthy discussion with Dr. Webber and Dr. Dahl yesterday. We need to get some degree of tissue biopsy. She was seen by Cardiology given her congestive heart failure with ejection fraction 25%. This may be related to chemotherapy agent used previously or even -induced cardiomyopathy. Regardless, it is my understanding that it sounds like the patient probably would not be an ideal candidate for any kind of general anesthesia, so I will try to schedule her to have an ultrasound-guided fine needle aspiration versus core needle biopsy down by Radiology. We will try to discuss with the radiologist to see if they can do that today. We will follow up with the results. cc: Maurice Crespo MD
[2019-02-01] MEDS: ZOFRAN IV PRN ×4 (08:17→22:53)
[2019-02-01] MEDS: LASIX IV SCH (08:21)
[2019-02-01] MEDS: DIOVAN PO SCH (08:21)
--- NOTE | 2019-02-01 09:41 | PROGRESS NOTE ---
DATE: 02/01/2019 SUBJECTIVE: This patient's neck pain is better. She is not complaining of shortness of breath. She is not complaining of chest pain, nausea, vomiting, or constipation, no diarrhea. Cardiology department already evaluated this patient and she has been placed on some medications for including Coreg and EDDIE inhibitors/arbs recommended by Cardiology Department. I will stop the antibiotics, Zosyn and vancomycin and I will put her on levofloxacin. She does have a nodule/infiltrate at the level of the right upper lung which has been there before. Also I had a conversation with the father at the bedside and he states that they have been monitoring this nodule before as well, so probably this is not an infection, but I will continue with a single antibiotic. I will stop the heparin drip right now and she has been scheduled for a ultrasound- guided biopsy today at 10:30. OBJECTIVE: Vital Signs: Temperature 98.9 degrees, pulse 87, respiratory rate 20, blood pressure 100/64, oxygen saturation 97% on room air. HEENT: Head normocephalic no trauma. Neck: She has pain/tenderness with some jugular distention on the left side, but better compared with yesterday. Chest: Decreased breath sounds at the bases with some crackles. Abdomen: Soft, nontender, nondistended. No hepatosplenomegaly. Extremities: No edema, no clubbing, no cyanosis. Neurological: The patient is alert. She is oriented x3. No focal deficits. LABORATORY: Pending lab work at this. ASSESSMENT AND PLAN: 1. Left neck pain with venous thrombosis in the left innominate and left internal jugular vein, possible also thrombosis at the level of the superior vena cava, continue with heparin drip which has been stopped momentarily due to a scheduled biopsy at 10:30. I already talked to the radiologist about it. 2. Multiple diffuse adenopathy in a patient with history of a Hernandez sarcoma, surgery department on board. The plan is to try to get some tissue from those lymph nodes today. 3. Bilateral pleural effusion in a patient with an echocardiogram that showed a severe reduction of ejection fraction of 25%, probably related to cardiomyopathy, but also this patient has been getting chemotherapy before, Cardiology on board. This patient has been placed on Lasix, Coreg and arbs. 4. History of Hernandez sarcoma, left side of the neck diagnosed in 2014, She [facility] [place]. 5. x1 month, aware. 6. Leukocytosis, aware. Upon admission the WBC was 13 yes, 2 days ago, 10 and I will wait for the final result today. 7. Deep vein thrombosis prophylaxis. She is on a heparin drip. 8. Right upper lobe nodule versus infiltrate, it looks like this is a nodule. Apparently this has been there before but is getting bigger. As per the father they have been monitoring this nodule before. cc: Servando Everett MD
[2019-02-01 09:59] LABS: BASO# 0.02 X1000 (0.0-0.2); BASO% 0.3 % (0.0-0.8); EOS# 0.05 X1000 (0.0-0.7); EOS% 0.7 % (0.0-10.0); HEMATOCRIT 36.9 % (37.0-47.0); HEMOGLOBIN 11.8 g/dL (12.0-16.0); IMM GRAN# 0.02 X1000 (0.0-0.04); IMM GRAN% 0.3 % (0.0-0.5); LYMPH% 14.6 % (20.5-51.1); MCH 30.7 PG (27-31); MCV 96.1 FL (81-99); MONO# 0.77 X1000 (0.11-0.59); MONO% 10.3 % (1.7-9.3); MPV 10.1 FL (7.4-10.4); NEUT# 5.55 X1000 (1.4-6.5); NEUT% 73.8 % (42.2-75.2); PLT 287 X1000 (130-400); RBC 3.84 XMIL (4.2-5.4); RDW 14.3 % (11.5-14.5); WBC 7.51 X1000 (4.8-10.8)
[2019-02-01] MEDS: COREG PO SCH ×2 (10:19→21:27)
[2019-02-01] MEDS: LEVAQUIN 500 MG/D5W 500 MG/100 ML IVPB IV SCH (10:19)
[2019-02-01 10:25] LABS: AGAP 16; BUN 7 mg/dL (8-22); CALCIUM 8.4 mg/dL (8.8-10.2); CHLORIDE 97 mmol/L (98-107); COSMO 278; ESTIMATED GFR > 60; GLUCOSE 80 mg/dL (70-104); POTASSIUM 2.7 mmol/L (3.5-5.1); SODIUM 141 mmol/L (136-145); TCO2 28 mmol/L (25-35)
[2019-02-01] MEDS: ULTRAM PO PRN ×2 (12:32→18:22)
[2019-02-01] MEDS ORDERED: KLOR-CON PO ONE ×2 (12:51→19:52)
--- NOTE | 2019-02-01 13:00 | Diag Imaging Result Doc PS360 ---
US GUIDED BX LYMPH NODE NEEDLE - 02/01/2019 INDICATION: multiple prominent lymph nodes TECHNIQUE: The risks and benefits of the procedure were discussed with the patient. All questions were answered. Written and verbal informed consent was obtained. Overlying skin was prepped and draped in sterile fashion. Anesthesia was achieved with injection of 5 cc of 1% lidocaine. COMPARISON: None FINDINGS: There were prominent, normal shaped cervical lymph nodes bilaterally. These measure up to about 1.6 cm. The dominant right supraclavicular lymph node was biopsied using the 25-gauge needle. This lymph node measured 16 x 8 mm. The patient reported no symptoms from the procedure. IMPRESSION: Successful and uncomplicated ultrasound-guided cervical lymph node needle biopsy. Electronically signed by Farhat Elizalde 02/01/2019 12:57 PM
--- NOTE | 2019-02-01 14:33 | HEMO/ONC CONSULTATION ---
DATE: 01/30/2019 ADMITTING PHYSICIAN: Dr. Antonio. REQUESTING PHYSICIANS: Dr. Antonio. We appreciate this consult. CHIEF COMPLAINT: Hernandez sarcoma. HISTORY OF PRESENT ILLNESS: Ms. 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 The patient was treated with chemotherapy and resection at [facility]. The patient has had no significant follow up since that time. The patient presented to [facility] Emergency Department with complaints of left neck swelling and pain. The patient is status post section delivery of a baby approximately 4 weeks ago. She also reported that she had some swelling and drainage at 1 end of her scar. Workup revealed a left internal jugular vein and left innominate vein thrombosis. Additionally, bilateral cervical and supraclavicular adenopathy was observed. The patient also was found to have a right upper lobe infiltrate versus mass of 3.9 cm. The patient is admitted for these findings and we are consulted as the patient does have a history of Hernandez sarcoma with questionable recurrence at this time. 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 PAST SURGICAL HISTORY: 1. section x2. 2. Left neck tumor resection. 3. Lymph nodes removed from the right groin, left neck, and right neck. SOCIAL HISTORY: The patient smokes 1/2 pack cigarettes daily since the age of 13. She does not use alcohol or illicit drugs. FAMILY HISTORY: Significant for 1 cousin with breast cancer and an aunt with an unknown type of cancer. MEDICATIONS ON ADMISSION: None. ALLERGIES: None. REVIEW OF SYSTEMS: A 14 point review of systems was obtained and is negative except for as mentioned in HPI. PHYSICAL EXAMINATION: General: Ms. Felix is a pleasant, female lying supine in bed, in no immediate distress. Vital Signs: Temperature 98.2 degrees, blood pressure 100/56, heart rate 91, respirations 18, O2 saturation 93% on room air. HEENT: Normocephalic, atraumatic. Mucous membranes are pink and moist. Sclerae are anicteric. Extraocular movements intact. Neck: Supple with palpable cervical lymph nodes bilaterally, as well as supraclavicular lymph nodes bilaterally. CV: S1, S2 is heard without murmur, rub, or gallop. Lungs: Clear to auscultation bilaterally. Chest expansion is equal bilaterally. Abdomen: Soft, nondistended, nontender. Bowel sounds positive all quadrants. No rebound or guarding noted. The patient does have palpable lumps. Extremities: Without clubbing, cyanosis, or edema. Dermatologic: No rashes, bruises, or lesions. Neurologic: The patient is awake, alert, and oriented x3 and has no focal deficits. LABORATORY DATA: Hemoglobin 12.3, hematocrit 37.1, white blood cell count 10.49, platelets 296,000. PT 15.0, PTT 35.4, INR 1.09. Sodium 138, potassium 3.4, chloride 101, CO2 is 24, BUN 6, creatinine 0.9, and glucose is 87. TSH is 5.26. LFTs are within normal limits. Urinalysis is negative for UTI. IMAGING STUDIES: 1. CT of the chest reveals a left innominate vein and superior vena cava thromboses, as well as moderate right and small left pleural effusions, a 3.9 cm right upper lobe opacity which is probably related to infiltrate versus mass lesion. 2. CT reveals diffuse thrombosis with enlargement of left internal jugular as well as bilateral cervical and supraclavicular adenopathy. ASSESSMENT AND PLAN: 1. Left neck Hernandez sarcoma, treated at [facility] in 2015 with chemotherapy and resection. The patient has had very little follow up since that time. We will obtain an excisional biopsy at this time with CT of the abdomen and pelvis and bone scan. Additionally, we will obtain medical records. Treatment plan to follow. 2. Right upper lobe infiltrate, 3.9 cm. Questionable pneumonia versus recurrence, as per #1. On antibiotics at this time. 3. Leukocytosis of questionable etiology with adenopathy. Currently on antibiotics. 4. 1 month with small area of dehiscence and infection. Infectious Disease is following. 5. We will follow along with you and make further recommendations pending outcomes. The above reflects the history, exam, assessment, and plan of Dr. Dahl. Dictated by MYRIAM Gill for Shamar Dahl MD cc: MYRIAM Gill MD
--- NOTE | 2019-02-01 20:05 | PROGRESS NOTE ---
DATE: 02/01/2019 SUBJECTIVE: The patient denies chest discomfort or dyspnea on room air. She has had some nausea. OBJECTIVE: Vital Signs: Blood pressure 105/56, heart rate 93, oxygen saturation 100% on room air. Neck: There is no significant jugular venous distention. Chest: Clear to auscultation bilaterally. Cardiac: Reveals a regular rate and rhythm without appreciable murmur or gallop. Extremities: Without edema. LABORATORY DATA: Includes a white blood cell count 7.51, hematocrit 36.9, hemoglobin 11.8, platelet count 287,000. Sodium 141, potassium 2.7, chloride 97, carbon dioxide 28, BUN 7, creatinine 1.00. IMPRESSION: 1. Nonischemic cardiomyopathy, probably cardiomyopathy. 2. 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 3. Previous Hernandez sarcoma left side of neck and back diagnosed in 2014. She was treated with surgery and chemotherapy at [facility]. RECOMMENDATIONS: 1. Supplement potassium. 2. Discontinue IV Lasix. 3. Start low-dose oral Lasix. cc: Tam Morin MD
[2019-02-01] MEDS: BENADRYL PO PRN (21:26)
[2019-02-02] MEDS: ULTRAM PO PRN ×4 (01:46→21:42)
[2019-02-02] MEDS: HEPARIN 25,000 UNITS/D5W 25,000 UNIT/250 ML IV.SOLN IV SCH ×2 (04:30→19:55)
[2019-02-02] MEDS: PRILOSEC PO SCH (06:16)
[2019-02-02] MEDS: ZOFRAN IV PRN ×3 (06:37→21:41)
--- NOTE | 2019-02-02 07:00 | GENERAL SURGERY PROGRESS NOTE ---
DATE: 02/02/2019 SUBJECTIVE: Patient seems to be doing okay. She tolerated her ultrasound-guided biopsy. She seems to be doing well. OBJECTIVE: Vital Signs: The patient is currently afebrile. Her vital signs are stable. General Examination: No acute distress. Cardiovascular: Regular rate and rhythm. Lungs: Grossly clear. Abdomen: Soft, nontender, nondistended. HEENT: Normocephalic, atraumatic. Pupils equal, round, reactive to light. Mucous membranes moist. Oropharynx benign. Neck: Pain still to the left side and some palpable lymph nodes. Extremities: Moves all extremities. Neurologic: Grossly intact. Skin: No signs of jaundice. Vascular: All extremities perfused. Laboratory: Reviewed from yesterday. ASSESSMENT AND PLAN: A 18-year-old female with lymphadenopathy. Lymphadenopathy. At this time, we will follow up with pathology to see if they got enough tissue. We will make further recommendations after that. cc: Maurice Crespo MD
--- NOTE | 2019-02-02 07:30 | Diag Imaging Result Doc PS360 ---
EXAM: CHEST-PORTABLE INDICATION: dyspnea TECHNIQUE: One view COMPARISON: 01/29/2019 FINDINGS: There has been interval significant improvement of the dense focal infiltrate in the right upper lobe. No new consolidation is identified. The pleural effusions have improved as well to gross resolution. Cardiac silhouette is stable. IMPRESSION: Improvement of right upper lobe infiltrate and bilateral effusions. Electronically signed by Freddy Thacker 02/02/2019 7:28 AM
[2019-02-02 07:53] LABS: BASO# 0.01 X1000 (0.0-0.2); BASO% 0.1 % (0.0-0.8); EOS# 0.06 X1000 (0.0-0.7); EOS% 0.7 % (0.0-10.0); HEMATOCRIT 38.3 % (37.0-47.0); HEMOGLOBIN 12.2 g/dL (12.0-16.0); LYMPH% 14.7 % (20.5-51.1); MCHC 31.9 g/dL (33-37); MCV 97.5 FL (81-99); MONO% 8.5 % (1.7-9.3); MPV 9.6 FL (7.4-10.4); NEUT# 6.22 X1000 (1.4-6.5); PLT 334 X1000 (130-400); RBC 3.93 XMIL (4.2-5.4); RDW 14.4 % (11.5-14.5); WBC 8.19 X1000 (4.8-10.8)
[2019-02-02] MEDS: LEVAQUIN 500 MG/D5W 500 MG/100 ML IVPB IV SCH (08:10)
[2019-02-02] MEDS: DIOVAN PO SCH (08:10)
[2019-02-02] MEDS: LASIX PO SCH (08:10)
[2019-02-02] MEDS: COREG PO SCH ×2 (08:10→21:41)
[2019-02-02 08:17] LABS: CREATININE 1.3 mg/dL (0.5-0.9); MAGNESIUM 1.7 mg/dL (1.5-2.7); PHOSPHORUS 4.4 mg/dL (2.7-4.5)
[2019-02-02] MEDS ORDERED: KLOR-CON PO ONE (09:09)
--- NOTE | 2019-02-02 11:28 | PROGRESS NOTE ---
DATE: 02/02/2019 SUBJECTIVE: Her neck pain is better. She had an ultrasound-guided biopsy yesterday, her kidney function increased a little bit to 1.3, but as per the patient, she is having a good urine output, she is eating without problems, she is feeling better. I will start this patient on Eliquis today and I will monitor the kidney function. We have stopped the IV Lasix and we put her on p.o. Lasix, lower dose. X-ray looks much better compared with admission. OBJECTIVE: Vital Signs: Temperature 97.9 degrees, pulse 91, respiratory rate 20, blood pressure 93/62, oxygen saturation 99 on room air. HEENT: Head normocephalic. No trauma. PERRLA. Neck: She has pain/tenderness with some jugular distention and some nodules, but better compared with previous days. Chest: Decreased breath sounds with some rales at the bases. Abdomen: Soft, nontender, nondistended. No hepatosplenomegaly. Extremities: No edema. No clubbing. No cyanosis. Neurological: The patient is alert, she is oriented x3. No focal deficits. LABORATORY DATA: WBC 8.1, hemoglobin 12.2, hematocrit 38.3, platelets 234,000. Sodium 139, potassium 3, chloride 96, bicarbonate 28, BUN 7, creatinine 1.3, glucose 111, calcium 9. ASSESSMENT AND PLAN: 1. Left neck pain with venous thrombosis in the left innominate and left internal jugular vein, possible also thrombosis at the level of superior vena cava. Continue with heparin drip which will be stopped today in the afternoon, I will start this patient on Eliquis after stopping the heparin drip. 2. Multiple diffuse adenopathy in a patient with a history of Hernandez sarcoma, status post ultrasound-guided biopsy. She seems to be better. We will continue with same management. 3. Mild acute kidney injury, probably a combination of diuretics and vancomycin that she was on before. The vancomycin has been stopped and the Lasix has been switched from IV 40 to p.o. 20. I will monitor. 4. History of Hernandez sarcoma as above, on the left side of the neck diagnosed in 2014. She [facility] [place]. 5. x1 month, aware. 6. Leukocytosis, aware. Upon admission, her WBC was 13, today is normal. 7. Deep vein thrombosis prophylaxis. She is on heparin drip and she will start getting Eliquis. 8. Right upper lobe node versus infiltrate. X-ray looks much better today. Apparently, she has been having this kind of nodule before, the father corroborated this information yesterday as well. She will follow this up with Hematology/Oncology Department as an outpatient. Overall, she is doing better, kidney function a little bit elevated, probably due to medications like EDDIE inhibitor, vancomycin and furosemide. We have modified some of them. We will continue with the same management today. Hopefully tomorrow, she is going to be able to be discharged. We will start anticoagulation with Eliquis today and stop the heparin drip in the afternoon. cc: Servando Everett MD
[2019-02-02] MEDS: ELIQUIS PO SCH (21:41)
[2019-02-03] MEDS: ULTRAM PO PRN (04:14)
[2019-02-03] MEDS: BENADRYL PO PRN (04:15)
[2019-02-03] MEDS: PRILOSEC PO SCH (06:00)
[2019-02-03 07:52] LABS: CALCIUM 9.4 mg/dL (8.8-10.2); CREATININE 1.4 mg/dL (0.5-0.9); POTASSIUM 3.6 mmol/L (3.5-5.1)
[2019-02-03] MEDS: COREG PO SCH (09:33)
[2019-02-03] MEDS: DIOVAN PO SCH (09:33)
[2019-02-03] MEDS: LEVAQUIN 500 MG/D5W 500 MG/100 ML IVPB IV SCH (09:33)
[2019-02-03] MEDS: LASIX PO SCH (09:33)
[2019-02-03] MEDS: ELIQUIS PO SCH ×2 (09:33→20:50)
[2019-02-03] MEDS: ZOFRAN IV PRN ×2 (09:34→21:00)
[2019-02-03] MEDS ORDERED: NS 500 ML IV SCH (09:45)
[2019-02-03] MEDS: NORCO-7.5 PO PRN ×3 (10:19→23:42)
--- NOTE | 2019-02-03 14:49 | PROGRESS NOTE ---
DATE: 02/03/2019 SUBJECTIVE: The patient seems to be stable, but the blood pressure has been low, mostly in the morning. The systolic blood pressure has been around the 70s. We held the beta blockers and also the valsartan, and I will give her some fluids since she is having a little bit of acute kidney injury. She is not having symptoms due to her hypotension. On the other hand, she is complaining of left neck pain, but is much better compared with admission. I discussed the case with the surgeon today, and we will verify that this patient has enough tissue to be studied by the pathologist. I will continue to monitor this patient closely. OBJECTIVE: Vital Signs: Temperature 97.2 degrees, pulse 98, blood pressure 96/67, oxygen saturation 94% on room air. HEENT: Head normocephalic, no trauma. PERRLA. Neck: Supple. Pain at the level of the left side of the neck which is painful to palpation and mobilization. Chest: Some rales at the bases. Abdomen: Soft, nontender, nondistended. No hepatosplenomegaly. The wound looks clean and is dry. It looks healed also. Extremities: No edema, no clubbing, no cyanosis. Neurological examination: The patient is alert and oriented x3. No focal deficits. LABORATORY: Sodium 138, potassium 3.6, chloride 97, bicarbonate 30. BUN 8, creatinine 1.4, glucose 116, calcium 9.4. ASSESSMENT AND PLAN: 1. Left neck pain with venous thrombosis in the left innominate and left internal jugular vein, possible also thrombosis at the level of the superior vena cava. Continue with anticoagulation which is now Eliquis. Continue with the same management. 2. Multiple diffuse adenopathy in a patient with a history of Hernandez sarcoma. Status post ultrasound-guided biopsy. She seems to be doing better. We will continue with same management. 3. Mild acute kidney injury, probably a combination of diuretics, vancomycin and low blood pressure. I held the blood pressure medication today because of hypotension, and I will continue to monitor. She will receive at least 500 mL of normal saline today. 4. History of Hernandez sarcoma, as above. 5. times 1 month. Aware. 6. Hypotension. She will receive a bolus of normal saline. We will monitor. 7. Deep vein thrombosis prophylaxis. She is on Eliquis. 8. Right upper lobe node versus infiltrate, x-ray looks much better yesterday. She has not been coughing. It looks like this is a nodule and the father corroborated this information a couple days ago. This is not a new finding. cc: Servando Everett MD
[2019-02-03] MEDS: NS 1,000 ML IV SCH ×2 (17:24→23:49)
--- NOTE | 2019-02-03 19:19 | PROGRESS NOTE ---
DATE: 02/03/2019 SUBJECTIVE: Patient continues without chest discomfort or dyspnea. She has had some low blood pressure and lab data has suggested some degree of prerenal azotemia. She has received some additional intravenous fluids. OBJECTIVE: Vital Signs: Blood pressure 90/50, heart rate 89 and regular, oxygen saturation 100% on room air. Neck: There is no appreciable jugular distention. Chest: Clear to auscultation. Cardiac: Regular rate and rhythm without appreciable murmur or gallop. There is no evidence of peripheral edema. LABORATORY DATA: Includes sodium 138, potassium 3.6, chloride 97, carbon dioxide 30, BUN 8, creatinine 1.4, glucose 275. IMPRESSION: 1. Nonischemic cardiomyopathy, probably cardiomyopathy. 2. Venous thrombosis of left innominate/jugular vein. The patient did have a venous port on the left in the past, which was removed. 3. Previous Hernandez sarcoma, left side of neck and back, diagnosed in 2015. She was treated with surgery and chemotherapy via [facility]. RECOMMENDATIONS: 1. Switch from low dose Coreg to very low dose metoprolol as this may help lessen her tendency for low blood pressure. 2. Agree with intravenous fluid administration. 3. Reasonable for patient to be discharged to home soon from a cardiovascular standpoint. I would be happy to see her again in approximately 2 to 3 weeks post discharge. cc: Tam Morin MD
[2019-02-04] MEDS: PRILOSEC PO SCH (06:53)
[2019-02-04] MEDS: NORCO-7.5 PO PRN (06:53)
--- NOTE | 2019-02-04 07:23 | Diag Imaging Result Doc PS360 ---
EXAM: CHEST-PORTABLE 02/04/2019 HISTORY: dyspnea TECHNIQUE: AP portable at 0600 COMMENT: There is cardiomegaly. There is a right pleural effusion which was not evident on 02/02/2019. Otherwise lungs appear to be clear. IMPRESSION: Right pleural effusion. Electronically signed by Saroj Johnson 02/04/2019 7:21 AM
[2019-02-04 07:40] LABS: BASO# 0.04 X1000 (0.0-0.2); BASO% 0.4 % (0.0-0.8); EOS# 0.07 X1000 (0.0-0.7); EOS% 0.8 % (0.0-10.0); HEMATOCRIT 40.6 % (37.0-47.0); HEMOGLOBIN 12.9 g/dL (12.0-16.0); IMM GRAN# 0.02 X1000 (0.0-0.04); IMM GRAN% 0.2 % (0.0-0.5); LYMPH# 1.31 X1000 (1.2-3.4); LYMPH% 14.2 % (20.5-51.1); MCH 31.4 PG (27-31); MCHC 31.8 g/dL (33-37); MCV 98.8 FL (81-99); MONO# 0.75 X1000 (0.11-0.59); MONO% 8.1 % (1.7-9.3); MPV 9.6 FL (7.4-10.4); NEUT# 7.05 X1000 (1.4-6.5); NEUT% 76.3 % (42.2-75.2); PLT 371 X1000 (130-400); RBC 4.11 XMIL (4.2-5.4); RDW 14.4 % (11.5-14.5); WBC 9.24 X1000 (4.8-10.8)
[2019-02-04 08:07] LABS: CALCIUM 8.5 mg/dL (8.8-10.2); CREATININE 1.3 mg/dL (0.5-0.9); POTASSIUM 3.7 mmol/L (3.5-5.1)
[2019-02-04] MEDS ORDERED: TOPROL XL PO SCH (09:00)
[2019-02-04] MEDS: LEVAQUIN 500 MG/D5W 500 MG/100 ML IVPB IV SCH (11:26)
[2019-02-04] MEDS: NS 1,000 ML IV SCH (11:26)
[2019-02-04] MEDS: ELIQUIS PO SCH (11:28)
[2019-02-04] MEDS: DIOVAN PO SCH (11:29)
[2019-02-04] MEDS: LASIX PO SCH (11:30)
[2019-02-04 13:26] VITALS: BP 92/62
--- NOTE | 2019-02-04 20:25 | DISCHARGE SUMMARY ---
ADMISSION DATE: 01/29/2019 DISCHARGE DATE: 02/04/2019 PERTINENT PROCEDURES: 1. Chest x-ray: Upper normal heart size which is increased from prior, apparent infiltrate at the right upper lobe. Metastatic lesion of the right lobe could not entirely be excluded. Small to medium bilateral pleural effusions. 2. Chest CT: Thrombosis of the innominate vein, possible thrombus of the superior vena cava. Medium right and small left pleural effusions, 3.9 cm right upper lobe opacity which is suggestive of infiltrate, but mass lesion is not excluded. 3. Neck CT: Diffuse thrombus with enlargement of the left internal jugular vein in the neck. There is also evidence of thrombosis of the left innominate vein and visualized superiormost thorax bilateral cervical and supraclavicular adenopathy. 4. Abdomen and pelvis CT: Bilateral pleural effusions, extensive venous collaterals, apparently due to obstruction of the left subclavian vein and/or the superior vena cava, markedly inhomogeneous liver enhancement which may be the result of periportal edema, hepatitis, cirrhosis, or altered vascularity, although there is a possibility of hepatic metastatic disease that cannot be entirely excluded. Retroperitoneal adenopathy, enlargement of the left ovary. 5. Nuclear body scan: No bony metastasis. 6. Guided needle placement ultrasound was successful and uncomplicated. The cervical lymph node needle biopsy cytology is still currently pending. 7. Final chest x-ray: Right pleural effusion. DISCHARGE DIAGNOSES: 1. Left neck pain with venous thrombosis in the left innominate and left internal jugular veins, also possible thrombus at the level of the superior vena cava. The patient will continue on p.o. Eliquis. She is going to be discharged on p.o. Eliquis 10 mg p.o. b.i.d. for 7 days, then 5 mg p.o. b.i.d. for the remainder. She will continue to follow up with her oncologist Dr. Dahl. 2. Multiple diffuse adenopathy in a patient with a history of Hernandez sarcoma, status post ultrasound-guided biopsy. She will continue to follow with Dr. Dahl. 3. Mild acute kidney injury, probable combination of diuretics, vancomycin and low blood pressure, improved. 4. Nonischemic cardiomyopathy, probably cardiomyopathy. The patient will continue on beta joelle and p.o. Lasix. 5. Probable pneumonia with a right infiltrate. The patient will be discharged home on Levaquin for 5 days. CONSULTATIONS: 1. Dr. Maurice Crespo with General Surgery. 2. Dr. Tam Morin with Cardiology. 3. Dr. Dahl with Oncology. HOSPITAL COURSE: Ms. 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 She was treated with chemotherapy and resection at [facility] in [place]. She had not had any significant follow-up since that time. She presented to the ED with complaints of left neck pain and swelling. She was currently from a C- section about a month ago. Her workup in the ED revealed a left internal jugular vein and left innominate vein thrombosis as well as bilateral cervical and supraclavicular adenopathy, as well as being found to have a right upper lobe infiltrate versus a mass of 3.9 cm. She was admitted for acute Hernandez sarcoma with questionable recurrence. At the time of her admission, she was initiated on blood thinners. General Surgery was consulted for her lymphadenopathy. She did undergo an ultrasound-guided biopsy. We are still awaiting those results. She was followed by Cardiology for acute congestive heart failure and was found to have severe cardiomyopathy secondary to cardiomyopathy with an EF of 25%. Cardiology made adjustments to her medications. She was placed on diuretics as well as beta blockers and an ARB and continued on IV antibiotics for probable pneumonia. Cardiology did adjustments to her beta joelle secondary to low blood pressures. They feel that she is cardiovascularly stable from their standpoint to be discharged home and follow up with them in 2 weeks as well as Oncology in 2 weeks. VITAL SIGNS AT TIME OF DISCHARGE.: Temperature is 97.6, heart rate 97, respirations 16, blood pressure 113/63, O2 is 100% on room air. DISCHARGE DIET: Regular. DISCHARGE MEDICATIONS: 1. Eliquis 10 mg p.o. b.i.d. for 7 days. 2. Eliquis 5 mg p.o. b.i.d. She will take this dosage after she has completed her 7 days of the 10 mg. 3. Lasix 20 mg p.o. daily. 4. Linden 7.5 one each p.o. every 6 hours p.r.n., 10 tablets. 5. Levofloxacin 500 mg p.o. daily for 5 days. 6. Toprol-XL 12.5 mg p.o. daily. 7. Diovan 40 mg p.o. daily. FOLLOWUP: Ms. Sanders is being discharged back home with self care. She is to take all medications as prescribed. She is to follow up with her biopsychologist Dr. Morin in 2 weeks as well a her oncologist Dr. Dahl in 2 weeks. She can return to the ED or call 911 for any worsening of symptoms. Discharge time: 35 minutes Dictated by MYRIAM Novoa for Servando Everett MD cc: MD Shamar Lester MD Gregory S. Cheatham, MD MTDD
== END 2019-02-04 14:20 | disposition home or self-care (01) | DRG 264 ==
LOC: P.ED 09:20 → 3N 14:34 → SUATTDRO 14:34
PROVIDERS: ATTEND Internal Medicine
CPT/HCPCS: 38505; 70491; 71010; 71020; 71045; 71046; 71260; 74177; 76942; 78306; 80048; 80053; 80202; 81001; 81025; 81240; 81241; 83090; 83605; 83735; 84100; 84443; 85025; 85300; 85301; 85302; 85306; 85610; 85612; 85613; 85730; 86147; 87040; 87070; 87077; 87186; 93306; 96365; 96366; 96375; 99285; 99291; A9270; A9503; C8929; J1644; J1940; J1956; J2405; J2543; J3370; J7030; J7040; J7050; Q9957; Q9967